=== PATIENT | female | born 1965 | race African-American/Black ===

== ENCOUNTER 2022-03-27 11:15 | Outpatient (CLI) | payer OTHER | END 2022-03-27 11:16 | disposition home or self-care (01) | LOC: CSHMAMMO 11:15 | PROVIDERS: ATTEND Nurse Practitioner Family | DX: Z12.31 Encounter for screening mammogram for malignant neoplasm of breast (principal) | CPT/HCPCS: 77063; 77067 ==

== ENCOUNTER 2022-10-28 09:53 | Outpatient (CLI) | payer OTHER | END 2022-10-28 09:54 | disposition home or self-care (01) | LOC: CSHULT 09:53 | PROVIDERS: ATTEND Obstetrics & Gynecology Gynecology | DX: E03.9 Hypothyroidism, unspecified (principal) | CPT/HCPCS: 76536 ==

== ENCOUNTER 2022-11-03 10:18 | Outpatient (CLI) | payer OTHER ==
[2022-11-03] MEDS ORDERED: Iopamidol 300 61% 100 ML VIAL FS ONE (11:55)
== END 2022-11-03 10:19 | disposition home or self-care (01) ==
LOC: CSHCT 10:18
PROVIDERS: ATTEND Internal Medicine Gastroenterology
DX: R10.33 Periumbilical pain (principal); Z98.890 Other specified postprocedural states
CPT/HCPCS: 74177

== ENCOUNTER 2023-11-23 12:13 | Emergency (ER) | payer OTHER ==
[2023-11-23] MEDS ORDERED: HYDROcodone/Acetaminophen 10/325 mg Tablet ONE (12:55)
[2023-11-23] MEDS ORDERED: predniSONE 20 MG TAB ONE (12:56)
== END 2023-11-23 13:38 | disposition home or self-care (01) ==
LOC: CSHERS 12:13
DX: M54.12 Radiculopathy, cervical region (principal); M54.16 Radiculopathy, lumbar region; I10 Essential (primary) hypertension
CPT/HCPCS: 99283; J7512